=== PATIENT | female | born 1995 | race Caucasian/White ===

== ENCOUNTER 2017-11-09 03:38 | Emergency (ER) | payer SELFPAY ==
--- NOTE | 2017-11-09 04:34 | ED ---
Elissa Castro Edward, scribed for Nessa Elkins MD on 11/09/17 at 0342 . Substance Abuse/Use - HPI Summary HPI Summary: 22 y/o female brought in by police for public intoxication earlier tonight. Pt got into a verbal altercation with her boyfriend and was brought to the ED for being intoxicated. Pt denies SI, HI. Pt lives alone and is a student at [employer]. - History Of Current Complaint Stated Complaint: 2208 Hx Obtained From: Patient Onset/Duration of Drug/ETOH Abuse: Hours Aggravating Factor(s): Nothing Alleviating Factor(s): Nothing Associated Signs And Symptoms: Negative PMH/Surg Hx/FS Hx/Imm Hx Previously Healthy: Yes Endocrine/Hematology History: Denies: Hx Diabetes Cardiovascular History: Denies: Hx Myocardial Infarction - Family History Known Family History: Positive: Unknown - Social History Occupation: Student Lives: Alone Alcohol Use: Occasionally Review of Systems Constitutional: Negative Eyes: Negative ENT: Negative Cardiovascular: Negative Respiratory: Negative Gastrointestinal: Negative Genitourinary: Negative Musculoskeletal: Negative Skin: Negative Neurological: Negative Psychological: Normal All Other Systems Reviewed And Are Negative: Yes Physical Exam - Summary Physical Exam Summary: VITAL SIGNS: Reviewed. GENERAL: Patient is a well-developed and nourished female who is lying comfortable in the stretcher. Patient is not in any acute respiratory distress. The patient is upset and does not want to be here. HEAD AND FACE: No signs of trauma. No ecchymosis, hematomas or skull depressions. No sinus tenderness. EYES: PERRLA, EOMI x 2, No injected conjunctiva, no nystagmus. EARS: Hearing grossly intact. Ear canals and tympanic membranes are within normal limits. MOUTH: Oropharynx within normal limits. NECK: Supple, trachea is midline, no adenopathy, no JVD, no carotid bruit, no c- spine tenderness, neck with full ROM. CHEST: Symmetric, no tenderness at palpation LUNGS: Clear to auscultation bilaterally. No wheezing or crackles. CVS: Regular rate and rhythm, S1 and S2 present, no murmurs or gallops appreciated. ABDOMEN: Soft, non-tender. No signs of distention. No rebound no guarding, and no masses palpated. Bowel sounds are normal. EXTREMITIES: FROM in all major joints, no edema, no cyanosis or clubbing. NEURO: Alert and oriented x 3. No acute neurological deficits. Speech is normal and follows commands. SKIN: Dry and warm Triage Information Reviewed: Yes Vital Signs Reviewed: Yes Course/Dx - Course Assessment/Plan: 22 y/o female brought in by police for public intoxication s/p verbal altercation with boyfriend earlier tonight. Pt is alert and oriented, ambulating in the ED. Pt will be d/c home. - Diagnoses Provider Diagnoses: Alcohol abuse Discharge - Discharge Plan Condition: Stable Disposition: HOME Patient Education Materials: Abuse of Alcohol (ED) Referrals: [facility] [Outside] The documentation as recorded by the Elissa karimi Edward accurately reflects the service I personally performed and the decisions made by me, Nessa Elkins MD.
[2017-11-09 04:47] VITALS: BP 135/87
== END 2017-11-09 04:46 | disposition home or self-care (01) ==
LOC: ED 03:38
DX: F10.10 Alcohol abuse, uncomplicated (principal)
CPT/HCPCS: 99282